=== PATIENT | female | born 1960 | race African-American/Black ===

== ENCOUNTER → 2016-10-07 | Outpatient (CLI) | payer OTHER ==
[~2016-10-07] MED LIST: ASPIRIN; IBUPROFEN; ZESTORETIC 20/11 TAB; ZOCOR
--- NOTE | ~2016-10-07 | MR113 ---
[facility]. [facility] A Service of [facility] & [facility] RADIOLOGY TEXT RESULTS PATIENT: RAMON BLUE LOCATION: [facility] : 56 UNIT #: [id number] AGE: [address]: Josemanuel William MD SEX: F ORDER DR: [id number] [place] [id number] O MR#: [id number] Acc #: [id number] NAME: RAMON BLUE : 1960 SEX: F STUDY DATE/TIME: 10/07/2016 14:42 UNIT: [facility] ROOM: STUDY DESCRIPTION: MR Lumbar Wo Contrast Attending Physician: Josemanuel William M.D. Referring Physician: Josemanuel William M.D. Ordering Physician: Josemanuel William M.D. Primary Care Physician: Josemanuel William M.D. MRI CENTER REPORT This report is preliminary unless electronic signature is present. EXAM MRI of the lumbar spine without contrast dated 10/07/2016. COMPARISON CT abdomen and pelvis dated 08/16/2009. No prior dedicated lumbar spine studies. HISTORY Increased lumbar pain for 2 months. Right greater than left leg pain. FINDINGS Multisequence, multiplanar imaging of the lumbar spine was obtained without contrast. 9 mm retrolisthesis of S1 is seen with respect to L5. No well-defined pars defects are identified. 8 mm fatty signal lesion is noted in L2 vertebral body, probably a nonaggressive lesion like hemangioma, based on statistics. Conus terminates at L1-2. Signal of conus and cauda equina are within normal limits. Pre- and paravertebral soft tissues do not demonstrate any significant abnormality. There is a sclerotic, less than 1 cm lesion noted in the right sacral ala on the lateral aspect. It is probably an incidental bone island, based on statistics, nonspecific. L1-2: Mild bilateral facet changes particularly in the left. Otherwise unremarkable. L2-3: Mild bilateral facet changes without canal stenosis or neural foraminal narrowing. L3-4: Mild concentric disc bulge with mild bilateral facet changes. Mild inferior bilateral neural foraminal narrowing is seen without canal stenosis. L4-5: Concentric disc bulge with severe bilateral facet hypertrophic STS. [facility] A Service of [facility] & [facility] RADIOLOGY TEXT RESULTS PATIENT: RAMON BLUE LOCATION: [facility] : 56 UNIT #: [id number] AGE: [address]: Josemanuel William MD SEX: F ORDER DR: changes and mild bilateral neural foraminal narrowing. No canal stenosis. L5-S1: Moderate disc bulge with very severe bilateral facet hypertrophic changes and mild mass effect on the anterolateral aspect of the thecal sac due to suspicious superimposed right [id number] protrusion which extends towards the foraminal region. Moderate bilateral neural foraminal narrowing is noted with mild right lateral recess encroachment. IMPRESSION 1. 9 mm retrolisthesis of S1 with respect to L5. It is probably degenerative in etiology. No well-defined pars defects are seen. Moderate bilateral neural foraminal narrowing is seen as described above with mild right lateral recess stenosis. 2. Degenerative changes are noted at multiple levels along with facet changes, mild. 3. Fatty signal 8-mm lesion is noted in L2 vertebral body, probably benign lesion like hemangioma, based on statistics. 4. There is a sclerotic focus in the lateral aspect of the right sacral ala, likely a nonaggressive lesion like bone island, based on statistics. There are no known malignancy noted to suspect blastic metastasis. There are no older studies available for comparison. It was however, seen in the CT pelvis from 08/16/2009 and it is relatively stable, confirming benignity. Dictated by... Ana Dawkins M.D. THIS IS AN ELECTRONICALLY VERIFIED REPORT Ana Dawkins M.D. at 10/09/2016 3:24 PM CPR/psc TD: 10/08/2016 21:53 JOB #: [id number] MRI CENTER REPORT Page 1 of 1
== END | disposition home or self-care (01) ==
LOC: SMRI 13:45
DX: M79.604 Pain in right leg (principal); M43.16 Spondylolisthesis, lumbar region; M47.896 Other spondylosis, lumbar region; M89.9 Disorder of bone, unspecified; G58.9 Mononeuropathy, unspecified
CPT/HCPCS: 72148

== ENCOUNTER → 2016-10-07 | Outpatient (CLI) | payer OTHER ==
--- NOTE | ~2016-10-07 | MR164 ---
[facility] A Service of [facility] & [facility] RADIOLOGY TEXT RESULTS PATIENT: RAMON BLUE LOCATION: [facility] : 56 UNIT #: [id number] AGE: [address]: SHANON THOMAS APRN SEX: F ORDER DR: [id number] [address] [address] [id number] O MR#: [id number] Acc #: [id number] NAME: RAMON BLUE : 1960 SEX: F STUDY DATE/TIME: 10/07/2016 15:14 UNIT: [facility] ROOM: STUDY DESCRIPTION: MR Shoulder Wo Contrast Lt Attending Physician: Shanon Thomas Aprn Referring Physician: Shanon Thomas Aprn Ordering Physician: Shanon Thomas Aprn Primary Care Physician: Josemanuel William M.D. MRI CENTER REPORT This report is preliminary unless electronic signature is present. EXAM MR of the left shoulder without contrast. HISTORY 55-year-old female with increasing left shoulder pain for 2 months. Decreased range of motion, decreased strength. COMPARISON MRI of the left shoulder 01/18/2013, left shoulder films 09/30/2016 FINDINGS Multiplanar, multiecho imaging was performed of the left shoulder utilizing a high field magnet and dedicated protocol. Patient has undergone apparent distal clavicular resection. Morphologic changes within the acromion suggest prior acromioplasty. Extensive subchondral cystic change is noted in the central glenoid, not significantly changed from the MRI of 01/18/2013. 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 No significant joint effusion. Small amount of enthesopathic cystic change and edema noted at the greater tuberosity at the cuff insertion. There is [id number] supraspinatus tendinopathy with a suspected small full-thickness or near full-thickness tear involving the anterior distal insertion of the supraspinatus tendon. This is estimated no more than 5 mm medial to lateral by 7 mm AP dimension. I suspect there is a slightly larger partial-thickness articular-sided tear which may measure up to 1.3 cm. Minimal infraspinatus tendinopathy. The teres minor and subscapularis tendons appear intact. Superior labrum, biceps anchor, and long tendon of the biceps appears intact. Anterior and posterior labrum unremarkable. The deltoid and extraarticular soft tissues unremarkable. [facility]. [facility] A Service of [facility] & [facility] RADIOLOGY TEXT RESULTS PATIENT: RAMON BLUE LOCATION: [facility] : 56 UNIT #: [id number] AGE: [address]: SHANON THOMAS APRN SEX: F ORDER DR: IMPRESSION 1. Progressive rotator cuff tendinopathy with interval development of a small approximately 5 x 7 mm full-thickness tear anterior distal insertion supraspinatus tendon with a suspected larger up to 1 cm partial-thickness articular-sided tear. This is superimposed on moderate tendinopathy. 2. Postsurgical changes from acromioplasty and distal clavicular resection. 3. Stable subchondral cystic changes within the central glenoid may be related to underlying chondromalacia but shows no progression from 2012. No findings to suggest progressive arthrosis. Dictated by... Mariela Barnes M.D. THIS IS AN ELECTRONICALLY VERIFIED REPORT Mariela Barnes M.D. at 10/08/2016 5:39 PM ZI/juan TD: 10/08/2016 15:57 JOB #: [id number] MRI CENTER REPORT Page 1 of 1
== END | disposition home or self-care (01) ==
LOC: SMRI 13:45
DX: G58.9 Mononeuropathy, unspecified (principal); S46.812A Strain of other muscles, fascia and tendons at shoulder and upper arm level, left arm, initial encounter; M75.102 Unspecified rotator cuff tear or rupture of left shoulder, not specified as traumatic; Z98.890 Other specified postprocedural states
CPT/HCPCS: 73221